=== PATIENT | male | born 1980 | race Caucasian/White ===

== ENCOUNTER 2022-01-24 08:53 | Emergency (ER) | payer OTHER ==
[~2022-01-24] VITALS: Ht 170.2 cm; Wt 74.0 kg
[2022-01-24 08:58] VITALS: BP 102/67
== END 2022-01-24 09:09 | disposition home or self-care (01) ==
LOC: ER 08:53
DX: S00.219A Abrasion of unspecified eyelid and periocular area, initial encounter (principal); R23.4 Changes in skin texture; X58.XXXA Exposure to other specified factors, initial encounter; Y93.89 Activity, other specified; Y92.89 Other specified places as the place of occurrence of the external cause
CPT/HCPCS: 99283